=== PATIENT | female | born 1950 | race Caucasian/White ===

== ENCOUNTER → 2021-12-21 | Outpatient (CLI) | payer MEDICARE ==
--- NOTE | 2021-12-21 10:31 | MM ---
Reason for Exam: Screening (asymptomatic). Baseline mammogram. Patient History: Menarche at age 11. First Full-Term at age 19. Postmenopausal. Risk Values: Trupti 5 year model risk: 1.6%. NCI Lifetime model risk: 3.9%. Prior Study Comparison: Patient's first Mammogram. No prior studies available for comparison. Tissue Density: There are scattered fibroglandular densities. Findings: Analyzed By CAD. There is a suspicious 1.1 cm spiculated mass in the 9:00 posterior right breast for which further evaluation is recommended. On the left, there is a subtle group of microcalcifications central 12:00 position at a middle depth for which magnification views are recommended. Overall Assessment: Incomplete: need additional imaging evaluation, BI-RAD 0 Management: Special View Mammogram of the right breast. Special View Mammogram of the left breast. 1. Additional view right breast, 3-D ML view. Subsequent whole right breast ultrasound including the axilla. 2. Additional views left breast to include mag CC, mag lateral, and 3-D lateral views. Electronically signed and approved by: Yared Stover M.D. Radiologist
--- NOTE | 2021-12-21 11:40 | MM ---
Reason for Exam: Additional evaluation requested from abnormal screening. Patient History: Menarche at age 11. First Full-Term at age 19. Postmenopausal. Risk Values: Trupti 5 year model risk: 1.6%. NCI Lifetime model risk: 3.9%. Tissue Density: There are scattered fibroglandular densities. Findings: Analyzed By CAD. Mammogram Additional views right breast demonstrates the 1.1 cm spiculated high density mass posterior 9:00 position for which ultrasound is recommended. Additional views left breast show grouped punctate and slightly heterogeneous microcalcifications central 12:00 at a middle depth for which stereotactic core needle biopsy is recommended. Technique: Method: Whole Breast Handheld. Findings: The whole breast of the right breast, the axilla of the right breast and the retroareolar of the right breast were scanned. Whole right breast ultrasound is performed including scanning of the subareolar region and axilla. Within the axilla, there is a nonenlarged 1.0 cm lymph node. However, this shows generalized cortical thickening up to 4 mm. Biopsy is recommended. At the 9:00 position, 4 cm from the nipple, far posteriorly, there is a vertically oriented hypoechoic lesion measuring 9 x 9 x 8 mm with echogenic halo. This is very suspicious and biopsy is recommended. Also, at the 8:00 position, 3 cm from the nipple, there is an indeterminate hypoechoic area that could represent a prominent fat lobule versus a second lesion measuring 5 x 4 x 3 mm. This should be reassessed at the time of biopsy to determine the need for sampling at this site as well. Overall Assessment: Highly suggestive of malignancy, BI-RAD 5 Assessment: MG 3D work up w/cad SHAUNA - Bilateral: Incomplete: need additional imaging evaluation, BI-RAD 0 - Right. US breast workup RT - Right: Highly suggestive of malignancy, BI-RAD 5. Management: Ultrasound Core Biopsy of the right breast. Stereotactic Core Biopsy of the left breast. 1. Ultrasound-guided core needle biopsy posterior 9:00 highly suspicious right breast mass. Ultrasound guided core needle biopsy mildly thickened right axillary lymph node. 2. Second look ultrasound at the time of biopsy for the right breast 8:00 position to determine if this site warrants sampling as well. 3. Stereotactic core needle biopsy left breast microcalcifications. Electronically signed and approved by: Yared Stover M.D. Radiologist
--- NOTE | 2021-12-21 18:56 | BD ---
EXAMINATION TYPE: Axial Bone Density DATE OF EXAM: 12/21/2021 COMPARISON: NONE CLINICAL HISTORY: 71 years year old Female. ICD-10 CODE: N95.1 Post menopausal symptoms Height: 5 FT 3 IN Weight: 181 FRAX RISK QUESTIONS: Alcohol (3 or more units per day): NO Family History (Parent hip fracture): NO Glucocorticoids (More than 3mos): NO (Ex: prednisone, prednisolone, methylprednisolone, dexamethasone, and hydrocortisone). History of Fracture in Adulthood: NO Secondary Osteoporosis: 1. Type 1 Diabetes: NO 2. Hyperthyroidism: NO 3. Menopause before 45: YES 4. Malnutrition: NO 5. Chronic liver disease: NO Rheumatoid Arthritis: NO Current Tobacco Use: NO RISK FACTORS HISTORY OF: Surgery to Spine/Hip(right/left)/Wrist (right/left): NO Family History of Osteoporosis: YES Active: YES Diet low in dairy products/other sources of calcium: NO Postmenopausal woman: YES Take estrogen and/or progesterone medications: NO Lost more than 2 inches in height since high school: NO Frequent falls: NO Poor Health: GOOD Hyperparathyroidism: NO Adrenal Insufficiency: NO MEDICATIONS: Thyroid Medications: YES Which medication: LEVOTHYROXINE How Lon MONTHS Additional Medications: LEVOTHYROXINE, ASPIRIN, METOPROLOL TARTRATE, ATORVASTATIN, PLAVIS, NITROCLYCE RINE, VIT D2 Additional History: EXAM MEASUREMENTS: Bone mineral densitometry was performed using the virocyt System. Bone mineral density as measured about the Lumbar spine is: ----- L1-L4(G/cm2): 1.422 T Score Values are as follows: ----- L1: 1.9 ----- L2: 2.7 ----- L3: 1.3 ----- L4: 2.0 ----- L1-L4: 2.0 BASELINE Bone mineral density about the R hip (g/cm2): 0.898 Bone mineral density about the L hip (g/cm2): 1.039 T Score values are as follows: -----R Neck: -1.0 -----L Neck: 0.0 -----R Total: 0.4 -----L Total: 0.7 BASELINE FRAX%s: The graph provided illustrates a 3.2 % chance for a major osteoporotic fx and a 0.7 % chance for the hips probability for fx in 10 years time. IMPRESSION: Normal (Values between +1 and -1 indicate normal bone mass). Consider repeating this study in 5 year s or sooner if there is some new clinical indication. NOTE: T-SCORE=SD OF THE YOUNG ADULT MEAN.
== END | disposition home or self-care (01) ==
LOC: RADMAMWWP 09:38
PROVIDERS: ATTEND Internal Medicine
DX: Z12.31 Encounter for screening mammogram for malignant neoplasm of breast (principal); Z78.0 Asymptomatic menopausal state; R92.8 Other abnormal and inconclusive findings on diagnostic imaging of breast
CPT/HCPCS: 77080; 77067; 77066; 77063; 76641; G0279; 77062

== ENCOUNTER → 2022-01-21 | Outpatient (CLI) | payer MEDICARE ==
[2022-01-21 07:41] VITALS: BP 165/84; PULSE 56; RESP 18; TEMP 97.8
--- NOTE | 2022-01-21 08:01 | P.GSHP ---
History of Present Illness H&P Date: 01/21/22 Chief Complaint: Bilateral mammogram abnormal/abnormal ultrasound right breast abnormal Aalna is a 71-year-old white female seen in consultation for Dr. Mena regarding radiographic abnormalities of both breasts. On she had a bilateral mammogram performed which revealed areas of concern in both breasts. In the left breast microcalcifications for which is stereo biopsy at 12:00 was recommended was noted, and in the right breast following an ultrasound two lesions of concern potentially in the right breast as well as an abnormal lymph node were identified. In the 9 o'clock position of the right breast a spiculated mass was identified for which ultrasound-guided core biopsy was recommended and a second area of question at 8:00 was identified for second look ultrasound will be performed to determine if a biopsy of this area is also warranted. Additionally an enlarged lymph node was noted on the right side for which core biopsy was recommended. The patient herself does not feel any lumps masses or nodules of concern in either breast. This was a routine mammogram. She is not complaining of any trauma or infection in the breast. She's not had any nipple discharge or skin changes. She has never had any surgery on her breasts before. Caffeine: none nicotine: stopped 25 years ago; used to smoke a PPD for 25 years hormones: none BCP: 1 year 1968 chocolate: none at this time Family History: twin brother: lung cancer (smoker) brother: Suppressed related to a kidney transplant and developed colon cancer Hormonal History: menarche: 10 M2, breast fed: no, age at : 19 menopause: 49 hormones: none BCP: 1 year in past Surgical history: gave brother kidney for transplant 4 D&C cardiac stint baby asprirn and plavix Medical History: prior angina asthma in the past Social History: smoke: in past alcohol: none drugs: none - Constitutional Constitutional: Reports sweats - EENT Comment: macular degeneration Ears: deny: decreased hearing, tinnitus Ears, nose, mouth and throat: Denies headache, Denies sore throat - Breasts Breasts: bilateral: as per HPI - Cardiovascular Cardiovascular: Reports as per HPI - Respiratory Respiratory: Denies cough, Denies 7 - Gastrointestinal Gastrointestinal: Denies abdominal pain, Denies diarrhea, Denies nausea, Denies vomiting - Genitourinary (Female) Genitourinary: Denies dysuria, Denies hematuria - Menstruation Menstruation: Reports postmenopausal - Musculoskeletal Comment: was having pain on high cholesteral medication/ pain left wrist Musculoskeletal: Reports myalgias - Integumentary Integumentary: Denies pruritus, Denies rash - Neurological Neurological: Reports numbness, Denies weakness - Psychiatric Psychiatric: Denies anxiety, Denies depression - Endocrine Endocrine: Denies fatigue, Denies weight change - Hematologic/Lymphatic Hematologic/Lymphatic: Reports as per HPI - Allergic/Immunologic Allergic/Immunologic: Reports as per HPI Past Medical History Past Medical History: Asthma, Chest Pain / Angina, GERD/Reflux, Hyperlipidemia Additional Past Medical History / Comment(s): LBBB. No asthma in last 10 years. c/o pressure on chest, shortness of breath, numbness in jaw on/off mainly with activity. Has 1 kidney. Cardiac stent placed 08-24-21 History of Any Multi-Drug Resistant Organisms: None Reported Additional Past Surgical History / Comment(s): Kidney donation surgery cardiac stent 08-24-2021 D&Cx6 between age 38 and 48. Past Anesthesia/Blood Transfusion Reactions: No Reported Reaction, Motion Sickness Past Psychological History: No Psychological Hx Reported Smoking Status: Former smoker Past Alcohol Use History: None Reported Additional Past Alcohol Use History / Comment(s): Smoked 30 years, 1 ppd, quit 1992. Past Drug Use History: None Reported - Past Family History Brother(s) Family Medical History: Cancer Additional Family Medical History / Comment(s): lung cancer Medications and Allergies Home Medications Medication Instructions Recorded Confirmed Type Aspirin [Adult Low Dose Aspirin EC] 81 mg PO DAILY 08/20/21 01/21/22 History Calcium Carbonate [Tums] 500 - 1,000 mg PO QID PRN 08/20/21 01/21/22 History Metoprolol Tartrate [Lopressor] 25 mg PO BID 08/20/21 01/21/22 History Clopidogrel [Plavix] 75 mg PO DAILY #90 tablet 08/24/21 01/21/22 Rx Nitroglycerin Sl Tabs [Nitrostat] 0.4 mg SUBLINGUAL Q5M PRN #25 tab 08/24/21 01/21/22 Rx Ergocalciferol [Vitamin D2 (1250 1,250 mcg PO WEEKLY 12/31/21 01/21/22 History Mcg = [id number] Iu)] Levothyroxine Sodium [Synthroid] 50 mcg PO DAILY 12/31/21 01/21/22 History Rosuvastatin Calcium [Crestor] 5 mg PO DAILY 12/31/21 01/21/22 History Allergies Allergy/AdvReac Type Severity Reaction Status Date / Time Iodine and Iodide Containing Allergy Rash/Hives, Verified 01/21/22 07:41 Produc tightening of throat Tetanus Vaccines and Toxoid Allergy Anaphylaxis Verified 01/21/22 07:41 Surgical - Exam Vital Signs Temp Pulse Resp BP Pulse Ox 97.8 F 56 L 18 165/84 97 01/21/22 07:37 01/21/22 07:37 01/21/22 07:37 01/21/22 07:37 01/21/22 07:37 BMI: 32.9 - General no distress - Eyes normal ocular movement - Neck trachea midline - Respiratory normal respiratory effort, clear to auscultation - Cardiovascular Rhythm: regular Heart Sounds: normal: S1, S2 - Abdomen Abdomen: soft - Integumentary normal turger - Neurologic no disoriented, no combative - Musculoskeletal normal gait, normal posture - Psychiatric oriented to time, oriented to person, oriented to place, speech is normal, memory intact Breast Exam: BRA: 40D inspection: Bilateral grade 2/3 ptosis Palpation: Right breast: Multi-positional exam no dominant masses or nodules of concern, fibrocystic changes Right axilla: No adenopathy of concern Left breast: Multi-positional exam no dominant masses or nodules of concern, fibrocystic changes Left axilla: No adenopathy of concern Results Mammogram and ultrasound reviewed personally, mammograms reviewed with Dr. Mendoza Assessment and Plan Assessment: Impression: Microcalcifications of concern left breast Spiculated mass right breast with additional possible lesion at the 8:00 region of the right breast, enlarged lymph node right axilla Fibrocystic breast changes Plan: Attempted stereotactic core biopsy of the left breast Ultrasound-guided core biopsy of 2 lesions within the right breast, 9:00 lesion is most definitive, questionable lesion at 8:00 which will be again evaluated with ultrasound Ultrasound core biopsy of axillary lymph node on the right Risks and benefits of procedure discussed with the patient. Following biopsy the patient will return for results of the biopsies. Risks include but are not limited to bleeding, infection, reaction to the anesthetic. Additionally if the biopsies are discordant additional tissue may be required. The ability to biopsy all lesions depends on the amount of anesthesia that we can use. CC: Dr. Mena
== END ==
LOC: WWCWWP 06:55
PROVIDERS: ATTEND Surgery
DX: N60.19 Diffuse cystic mastopathy of unspecified breast (principal); R92.1 Mammographic calcification found on diagnostic imaging of breast; N63.0 Unspecified lump in unspecified breast; Z87.891 Personal history of nicotine dependence; J45.909 Unspecified asthma, uncomplicated; E78.5 Hyperlipidemia, unspecified; Z91.041 Radiographic dye allergy status; Z88.7 Allergy status to serum and vaccine

== ENCOUNTER → 2022-01-21 | Day surgery (SDC) | payer MEDICARE ==
[2022-01-21 07:26] VITALS: RESP 16
--- NOTE | 2022-01-21 08:53 | P.PCN ---
Date of Procedure: 01/21/22 Preoperative Diagnosis: Microcalcifications of concern left breast Postoperative Diagnosis: Same Procedure(s) Performed: Left breast stereotactic core biopsy Anesthesia: local Surgeon: Joie England Pathology: other (Breast tissue/microcalcifications of concern noted to be present in specimen) Condition: stable Disposition: same day Indications for Procedure: Abnormal mammogram left breast microcalcifications of concern 12 o'clock position mid breast Operative Findings: Radiographic specimen reveals microcalcifications of concern Description of Procedure: Alana is a 71-year-old white female who on a routine screening mammogram was noted to have microcalcifications of concern in her left breast at the 12 o'clock position centrally located. She was recommended to undergo a left breast stereotactic core biopsy. Additionally lesions were noted in the right breast for which she will have ultrasound core biopsy. Risks and benefits of the procedure were discussed with the patient. She understood and wished to proceed. The patient was taken to the stereotactic core biopsy room and positioned prone on the Lorad table. The lesion of concern was in the 12 o'clock position left breast in mid breast. A CC from above approach was utilized. The lesion was targeted. Following this the breast was prepped using chlorhexidine. 14 mL of 1% lidocaine were used to anesthetize the area of concern. A 9-gauge vacuum- assisted core rotating biopsy needle was driven to the correct coordinates. A prefire film was obtained and the needle was noted to be in the correct location. The needle was fired. Post fire film was obtained and the needle was noted to be in the correct location. 19 core biopsy specimens were obtained. The area was lavaged. Radiograph of the specimen revealed the area of concern had been adequately sampled. A secure marked top hat clip was placed. The clip appeared to be in the correct location. The specimen was sent to pathology. The patient will follow-up with Dr. Das in 1 week. The patient tolerated the procedure in stable condition.
[2022-01-21 08:56] VITALS: BP 140/77; PULSE 70; TEMP 98.1
--- NOTE | 2022-01-24 09:08 | MM ---
Addendum entered and electronically signed by Joie England MD 01/21/22 09:09: CC and lateral postprocedure views were evaluated and the clip appears to be in the correct location for the lesion of concern which was sampled. Original Note: Date of Procedure: 01/21/22 Preoperative Diagnosis: Microcalcifications of concern left breast Postoperative Diagnosis: Same Procedure(s) Performed: Left breast stereotactic core biopsy Anesthesia: local Surgeon: Joie England Pathology: other (Breast tissue/microcalcifications of concern noted to be present in specimen) Condition: stable Disposition: same day Indications for Procedure: Abnormal mammogram left breast microcalcifications of concern 12 o'clock position mid breast Operative Findings: Radiographic specimen reveals microcalcifications of concern Description of Procedure: Alana is a 71-year-old white female who on a routine screening mammogram was noted to have microcalcifications of concern in her left breast at the 12 o'clock position centrally located. She was recommended to undergo a left breast stereotactic core biopsy. Additionally lesions were noted in the right breast for which she will have ultrasound core biopsy. Risks and benefits of the procedure were discussed with the patient. She understood and wished to proceed. The patient was taken to the stereotactic core biopsy room and positioned prone on the Lorad table. The lesion of concern was in the 12 o'clock position left breast in mid breast. A CC from above approach was utilized. The lesion was targeted. Following this the breast was prepped using chlorhexidine. 14 mL of 1% lidocaine were used to anesthetize the area of concern. A 9-gauge vacuum- assisted core rotating biopsy needle was driven to the correct coordinates. A prefire film was obtained and the needle was noted to be in the correct location. The needle was fired. Post fire film was obtained and the needle was noted to be in the correct location. 19 core biopsy specimens were obtained. The area was lavaged. Radiograph of the specimen revealed the area of concern had been adequately sampled. A secure prashant top hat clip was placed. The clip appeared to be in the correct location. The specimen was sent to pathology. The patient will follow-up with Dr. Das in 1 week. The patient tolerated the procedure in stable condition. GR[facility] HOSPITALTarik
--- NOTE | 2022-01-27 11:28 | USB ---
Risk Values: Trupti 5 year model risk: 1.6%. NCI Lifetime model risk: 3.9%. Pathology Description: Marker Left Behind. Specimen Radiograph. Approach: CC FA Cores: 19 Skin Nicks: 1 Gauge: 9 Addendum entered and electronically signed by Joie England MD 01/21/22 09:09: CC and lateral postprocedure views were evaluated and the clip appears to be in the correct location for the lesion of concern which was sampled. Original Note: Date of Procedure: 01/21/22 Preoperative Diagnosis: Microcalcifications of concern left breast Postoperative Diagnosis: Same Procedure(s) Performed: Left breast stereotactic core biopsy Anesthesia: local Surgeon: Joie England Pathology: other (Breast tissue/microcalcifications of concern noted to be present in specimen) Condition: stable Disposition: same day Indications for Procedure: Abnormal mammogram left breast microcalcifications of concern 12 o'clock position mid breast Operative Findings: Radiographic specimen reveals microcalcifications of concern Description of Procedure: Alana is a 71-year-old white female who on a routine screening mammogram was noted to have microcalcifications of concern in her left breast at the 12 o'clock position centrally located. She was recommended to undergo a left breast stereotactic core biopsy. Additionally lesions were noted in the right breast for which she will have ultrasound core biopsy. Risks and benefits of the procedure were discussed with the patient. She understood and wished to proceed. The patient was taken to the stereotactic core biopsy room and positioned prone on the [place] table. The lesion of concern was in the 12 o'clock position left breast in mid breast. A CC from above approach was utilized. The lesion was targeted. Following this the breast was prepped using chlorhexidine. 14 mL of 1% lidocaine were used to anesthetize the area of concern. A 9-gauge vacuum-assisted core rotating biopsy needle was driven to the correct coordinates. A prefire film was obtained and the needle was noted to be in the correct location. The needle was fired. Post fire film was obtained and the needle was noted to be in the correct location. 19 core biopsy specimens were obtained. The area was lavaged. Radiograph of the specimen revealed the area of concern had been adequately sampled. A secure marked top hat clip was placed. The clip appeared to be in the correct location. The specimen was sent to pathology. The patient will follow-up with Dr. Das in 1 week. The patient tolerated the procedure in stable condition. Pathology Results: Result: Benign, Pseudoangiomatous stromal hyperplasia. LEFT BREAST, CORE BIOPSY: Fibroadenomatoid stromal hyperplasia with microcalcification, fibrocystic change with columnar cell change/hyperplasia and focal usual ductal hyperplasia. 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 Focal sclerosing adenosis present. Tissue Density: Right: There are scattered fibroglandular densities. Pathology Description: Location: 8 o'clock. Marker Left Behind. Cores: 2 Gauge: 12 This was performed after stereotactic guided core biopsy was performed by surgeon of the left breast. The procedure of ultrasound guided core biopsy was explained to the patient. Benefits, alternatives, and risks were discussed. An informed consent was then obtained. The patient was placed in supine positioning for imaging and for the procedure. Preprocedure ultrasound redemonstrates a vague heterogeneous area at 8:00 position 3 cm distance from nipple along with a more suspicious irregular hypoechoic mass 9:00 position 4 cm distance from nipple deep in the right breast along with slightly prominent right axillary lymph nodes with slightly eccentric cortical thickening. The overlying skin was prepped and draped in usual sterile fashion. Lidocaine is used as anesthetic into the skin and subcutaneous tissue at all 3 sites. Lidocaine with epinephrine is used as anesthetic in the deeper tissue in the axilla and at the 9:00 position. Approximately 15 cc total of both was used for all 3 sites. Under ultrasound guidance, a vacuum assisted biopsy gun device was used to obtain 2 core samples at 8 and 9:00 position. Following this, a biopsy clip was left in each lesion. Under ultrasound guidance, a 14-gauge Bard device was used to obtain 3 core samples and then biopsy clip was left in the targeted lymph node. The patient tolerated the procedure well without any immediate complication. The patient was kept in the radiology department for short stay after the procedure and then discharged home in stable condition. Post procedure mammogram shows successful deployment of all 3 clips. The most suspicious lesion 9:00 position corresponds to area of greatest concern on mammogram. Poor visualization of targeted right axillary lymph node due to increased irregular soft tissue density which may reflect combination of anesthetic and postbiopsy hematoma. Impression: Successful, uncomplicated ultrasound guided core biopsy of 3 areas of concern in the right breast, full pathology results to follow. High index of suspicion of the 9:00 lesion. Low index of suspicion of the 8:00 lesion. Low to intermediate index of suspicion of the right axillary lesion. Pathology Results: Result: Malignant, Invasive ductal carcinoma. A. RIGHT BREAST, 9:00 POSITION, CORE BIOPSY: Well differentiated invasive ductal carcinoma, Grade 1, with focal microcalcification (see surgical pathology cancer case summary and comment). B. RIGHT BREAST, 8:00 POSITION, CORE BIOPSY: Benign breast tissue with small duct papillomatosis, mild to moderate usual ductal hyperplasia and fibrosis. C. AXILLARY LYMPH NODE, CORE BIOPSY: Lymphoid core tissue negative for metastatic carcinoma. Pancytokeratin (AE1/AE3) stain with appropriate controls on specimen C negative for features of metastatic carcinoma. Pathology Description: Location: 9 o'clock. Marker Left Behind. Cores: 2 Gauge: 12 This was performed after stereotactic guided core biopsy was performed by surgeon of the left breast. The procedure of ultrasound guided core biopsy was explained to the patient. Benefits, alternatives, and risks were discussed. An informed consent was then obtained. The patient was placed in supine positioning for imaging and for the procedure. Preprocedure ultrasound redemonstrates a vague heterogeneous area at 8:00 position 3 cm distance from nipple along with a more suspicious irregular hypoechoic mass 9:00 position 4 cm distance from nipple deep in the right breast along with slightly prominent right axillary lymph nodes with slightly eccentric cortical thickening. The overlying skin was prepped and draped in usual sterile fashion. Lidocaine is used as anesthetic into the skin and subcutaneous tissue at all 3 sites. Lidocaine with epinephrine is used as anesthetic in the deeper tissue in the axilla and at the 9:00 position. Approximately 15 cc total of both was used for all 3 sites. Under ultrasound guidance, a vacuum assisted biopsy gun device was used to obtain 2 core samples at 8 and 9:00 position. Following this, a biopsy clip was left in each lesion. Under ultrasound guidance, a 14-gauge Bard device was used to obtain 3 core samples and then biopsy clip was left in the targeted lymph node. The patient tolerated the procedure well without any immediate complication. The patient was kept in the radiology department for short stay after the procedure and then discharged home in stable condition. Post procedure mammogram shows successful deployment of all 3 clips. The most suspicious lesion 9:00 position corresponds to area of greatest concern on mammogram. Poor visualization of targeted right axillary lymph node due to increased irregular soft tissue density which may reflect combination of anesthetic and postbiopsy hematoma. Impression: Successful, uncomplicated ultrasound guided core biopsy of 3 areas of concern in the right breast, full pathology results to follow. High index of suspicion of the 9:00 lesion. Low index of suspicion of the 8:00 lesion. Low to intermediate index of suspicion of the right axillary lesion. Pathology Results: Result: Malignant, Invasive ductal carcinoma. A. RIGHT BREAST, 9:00 POSITION, CORE BIOPSY: Well differentiated invasive ductal carcinoma, Grade 1, with focal microcalcification (see surgical pathology cancer case summary and comment). B. RIGHT BREAST, 8:00 POSITION, CORE BIOPSY: Benign breast tissue with small duct papillomatosis, mild to moderate usual ductal hyperplasia and fibrosis. C. AXILLARY LYMPH NODE, CORE BIOPSY: Lymphoid core tissue negative for metastatic carcinoma. Pancytokeratin (AE1/AE3) stain with appropriate controls on specimen C negative for features of metastatic carcinoma. Pathology Description: Location: axillary tail. Cores: 3 Gauge: 14 This was performed after stereotactic guided core biopsy was performed by surgeon of the left breast. The procedure of ultrasound guided core biopsy was explained to the patient. Benefits, alternatives, and risks were discussed. An informed consent was then obtained. The patient was placed in supine positioning for imaging and for the procedure. Preprocedure ultrasound redemonstrates a vague heterogeneous area at 8:00 position 3 cm distance from nipple along with a more suspicious irregular hypoechoic mass 9:00 position 4 cm distance from nipple deep in the right breast along with slightly prominent right axillary lymph nodes with slightly eccentric cortical thickening. The overlying skin was prepped and draped in usual sterile fashion. Lidocaine is used as anesthetic into the skin and subcutaneous tissue at all 3 sites. Lidocaine with epinephrine is used as anesthetic in the deeper tissue in the axilla and at the 9:00 position. Approximately 15 cc total of both was used for all 3 sites. Under ultrasound guidance, a vacuum assisted biopsy gun device was used to obtain 2 core samples at 8 and 9:00 position. Following this, a biopsy clip was left in each lesion. Under ultrasound guidance, a 14-gauge Bard device was used to obtain 3 core samples and then biopsy clip was left in the targeted lymph node. The patient tolerated the procedure well without any immediate complication. The patient was kept in the radiology department for short stay after the procedure and then discharged home in stable condition. Post procedure mammogram shows successful deployment of all 3 clips. The most suspicious lesion 9:00 position corresponds to area of greatest concern on mammogram. Poor visualization of targeted right axillary lymph node due to increased irregular soft tissue density which may reflect combination of anesthetic and postbiopsy hematoma. Impression: Successful, uncomplicated ultrasound guided core biopsy of 3 areas of concern in the right breast, full pathology results to follow. High index of suspicion of the 9:00 lesion. Low index of suspicion of the 8:00 lesion. Low to intermediate index of suspicion of the right axillary lesion. Pathology Results: Result: Malignant, Invasive ductal carcinoma. A. RIGHT BREAST, 9:00 POSITION, CORE BIOPSY: Well differentiated invasive ductal carcinoma, Grade 1, with focal microcalcification (see surgical pathology cancer case summary and comment). B. RIGHT BREAST, 8:00 POSITION, CORE BIOPSY: Benign breast tissue with small duct papillomatosis, mild to moderate usual ductal hyperplasia and fibrosis. C. AXILLARY LYMPH NODE, CORE BIOPSY: Lymphoid core tissue negative for metastatic carcinoma. Pancytokeratin (AE1/AE3) stain with appropriate controls on specimen C negative for features of metastatic carcinoma. Overall Assessment: Malignant Assessment: MG diagnostic mammo RT wo CAD - Right: Known biopsy proven malignancy, BI-RAD 6. Management: Surgical Consultation of the right breast. Electronically signed and approved by: Jameson Mendoza M.D.
== END ==
LOC: RADMAMWWP 06:56
PROVIDERS: ATTEND Surgery
DX: D05.11 Intraductal carcinoma in situ of right breast (principal); N62 Hypertrophy of breast; R92.0 Mammographic microcalcification found on diagnostic imaging of breast; N60.11 Diffuse cystic mastopathy of right breast; Z91.048 Other nonmedicinal substance allergy status
CPT/HCPCS: 88305; 88342; 88341; 77065; 19081; 38505; 19083; 19084; A4648 ×2; J2001

== ENCOUNTER → 2022-01-27 | Outpatient (CLI) | payer MEDICARE ==
--- NOTE | 2022-01-27 14:20 | P.PN ---
Subjective Progress Note Date: 01/27/22 Alana is a 71-year-old white female seen in consultation for Dr. Mena regarding radiographic abnormalities of both breasts. On she had a bilateral mammogram performed which revealed areas of concern in both breasts. In the left breast microcalcifications for which is stereo biopsy at 12:00 was recommended was noted, and in the right breast following an ultrasound two lesions of concern potentially in the right breast as well as an abnormal lymph node were identified. In the 9 o'clock position of the right breast a spiculated mass was identified for which ultrasound-guided core biopsy was recommended and a second area of question at 8:00 was identified for second look ultrasound will be performed to determine if a biopsy of this area is also warranted. Additionally an enlarged lymph node was noted on the right side for which core biopsy was recommended. The patient herself does not feel any lumps masses or nodules of concern in either breast. This was a routine mammogram. She is not complaining of any trauma or infection in the breast. She's not had any nipple discharge or skin changes. She has never had any surgery on her breasts before. 01-27-22 The returns to the office today with her for results of the biopsy sites. She tolerated the biopsies without difficulty. The right breast core biopsy of 3 sites was performed on Right breast 9 o'clock position well-differentiated invasive ductal carcinoma grade 1 Right breast 8 o'clock position benign breast tissue with small duct papillomatosis Axillary node biopsy lymphoid core tissue negative for metastatic carcinoma Left breast stereotactic biopsy on the same date revealed fibrocystic breast changes Caffeine: none nicotine: stopped 25 years ago; used to smoke a PPD for 25 years hormones: none BCP: 1 year 1967 chocolate: none at this time Family History: twin brother: lung cancer (smoker) brother: Suppressed related to a kidney transplant and developed colon cancer Hormonal History: menarche: 10 M2, breast fed: no, age at : 19 menopause: 49 hormones: none BCP: 1 year in past Surgical history: gave brother kidney for transplant 4 D&C cardiac stint baby asprirn and plavix Medical History: prior angina asthma in the past Social History: smoke: in past alcohol: none drugs: none - Constitutional Constitutional: Reports sweats - EENT Comment: macular degeneration Ears: deny: decreased hearing, tinnitus Ears, nose, mouth and throat: Denies headache, Denies sore throat - Breasts Breasts: bilateral: as per HPI - Cardiovascular Cardiovascular: Reports as per HPI - Respiratory Respiratory: Denies cough - Gastrointestinal Gastrointestinal: Denies abdominal pain, Denies diarrhea, Denies nausea, Denies vomiting - Genitourinary (Female) Genitourinary: Denies dysuria, Denies hematuria - Menstruation Menstruation: Reports postmenopausal - Musculoskeletal Comment: was having pain on high cholesteral medication/ pain left wrist Musculoskeletal: Reports myalgias - Integumentary Integumentary: Denies pruritus, Denies rash - Neurological Neurological: Reports numbness, Denies weakness - Psychiatric Psychiatric: Denies anxiety, Denies depression - Endocrine Endocrine: Denies fatigue, Denies weight change - Hematologic/Lymphatic Hematologic/Lymphatic: Reports as per HPI - Allergic/Immunologic Allergic/Immunologic: Reports as per HPI Objective - Constitutional General appearance: Present: cooperative - EENT Eyes: Present: EOMI ENT: Present: hearing grossly normal - Neck Neck: Present: normal ROM - Respiratory Respiratory: bilateral: CTA - Cardiovascular Rhythm: regular Heart sounds: normal: S1, S2 - Integumentary Integumentary Comment(s): Achymosis bilateral breasts of biopsy sites no evidence of hematoma or infection - Musculoskeletal Musculoskeletal: Present: gait normal - Psychiatric Psychiatric: Present: A&O x's 3, appropriate affect, intact judgment & insight Assessment and Plan Assessment: Impression: Stage IA invasive ductal carcinoma right breast Plan: present case at tumor board clearance from Dr. Mena CC: Dr. Mena
[2022-01-27 14:21] VITALS: PULSE 86; RESP 17; TEMP 98.7
== END ==
LOC: WWCWWP 13:52
PROVIDERS: ATTEND Surgery
DX: C50.911 Malignant neoplasm of unspecified site of right female breast (principal); Z17.0 Estrogen receptor positive status [ER+]; Z98.890 Other specified postprocedural states; Z87.891 Personal history of nicotine dependence; J45.909 Unspecified asthma, uncomplicated; Z91.041 Radiographic dye allergy status; Z88.7 Allergy status to serum and vaccine

== ENCOUNTER → 2022-03-18 | Outpatient (CLI) | payer MEDICARE ==
[2022-03-18 11:43] VITALS: BP 173/78; PULSE 77; RESP 16; TEMP 98.1
--- NOTE | 2022-03-18 12:05 | P.PN ---
Subjective Progress Note Date: 03/18/22 Principal diagnosis: right breast 9:00 stage IA invasive ductal cancer I have had a long discussion with the patient and her regarding the stage of her cancer, as well as treatment options. This is a T1 N0 M0 ER/MD positive HER-2 lesion which will be a stage IA no matter what the HER-2 status returns. At this point she is preferring a lumpectomy. We will also need preoperative clearance from Dr. Salamanca. Original Note: Subjective Progress Note Date: 01/27/22 Alana is a 71-year-old white female seen in consultation for Dr. [place] [id number] she had a bilateral mammogram performed which revealed areas of concern in both breasts. In the left breast microcalcifications for which is stereo biopsy at 12:00 was recommended was noted, and in the right breast following an ultrasound two lesions of concern potentially in the right breast as well as an abnormal lymph node were identified. In the 9 o'clock position of the right breast a spic ulated mass was identified for which ultrasound-guided core biopsy was recommended and a second area of question at 8:00 was identified for second look ultrasound will be performed to determine if a biopsy of this area is also warranted. Additionally an enlarged lymph node was noted on the right side for which core biopsy was recommended. The patient herself does not feel any lumps masses or nodules of concern in either breast. This was a routine mammogram. She is not complaining of any trauma or infection in the breast. She's not had any nipple discharge or skin changes. She has never had any surgery on her breasts before. 01-27-22 The returns to the office today with her for results of the biopsy sites. She tolerated the biopsies without difficulty. The right breast core biopsy of 3 [place] [id number] Right breast 9 o'clock position well-differentiated invasive ductal carcinoma grade 1 Right breast 8 o'clock position benign breast tissue with small duct papillomatosis Axillary node biopsy lymphoid core tissue negative for metastatic carcinoma Left breast stereotactic biopsy on the same date revealed fibrocystic breast changes [place] [id number] The patient is complaining of weakness in bilateral arms and hands, starting earlier this week. Caffeine: none nicotine: stopped 25 years ago; used to smoke a PPD for 25 years hormones: none BCP: 1 year 1967 chocolate: none at this time Family History: twin brother: lung cancer (smoker) brother: Suppressed related to a kidney transplant and developed colon cancer Hormonal History: menarche: 10 M2, breast fed: no, age at : 19 menopause: 49 hormones: none BCP: 1 year in past Surgical history: gave brother kidney for transplant 4 D&C cardiac stint baby asprirn and plavix Medical History: prior angina asthma in the past Social History: smoke: in past alcohol: none drugs: none - Constitutional Constitutional: Reports sweats - EENT Comment: macular degeneration Ears: deny: decreased hearing, tinnitus Ears, nose, mouth and throat: Denies headache, Denies sore throat - Breasts Breasts: bilateral: as per HPI - Cardiovascular Cardiovascular: Reports as per HPI - Respiratory Respiratory: Denies cough - Gastrointestinal Gastrointestinal: Denies abdominal pain, Denies diarrhea, Denies nausea, Denies vomiting - Genitourinary (Female) Genitourinary: Denies dysuria, Denies hematuria - Menstruation Menstruation: Reports postmenopausal - Musculoskeletal Comment: was having pain on high cholesteral medication/ pain left wrist Musculoskeletal: Reports myalgias - Integumentary Integumentary: Denies pruritus, Denies rash - Neurological Neurological: Reports numbness, Denies weakness - Psychiatric Psychiatric: Denies anxiety, Denies depression - Endocrine Endocrine: Denies fatigue, Denies weight change - Hematologic/Lymphatic Hematologic/Lymphatic: Reports as per HPI - Allergic/Immunologic Allergic/Immunologic: Reports as per HPI Objective - Constitutional General appearance: Present: cooperative - EENT Eyes: Present: EOMI ENT: Present: hearing grossly normal - Neck Neck: Present: normal ROM - Respiratory Respiratory: bilateral: CTA - Cardiovascular Rhythm: regular Heart sounds: normal: S1, S2 - Integumentary Integumentary: Present: normal turgor - Musculoskeletal Musculoskeletal: Present: gait normal - Psychiatric Psychiatric: Present: A&O x's 3, appropriate affect, intact judgment & insight - Additional findings Additional findings: Breast exam: Bra: 40D Inspection: Bilateral grade 2/3 ptosis Palpation: Bypass: Multiple positional exam no dominant masses or nodules of concern, fibrocystic changes Right axilla: No adenopathy of concern Left Breast: Multiple positional exam no dominant masses or nodules of concern, fibrocystic changes Left axilla: No adenopathy of concern Assessment and Plan Assessment: Impression: Prior angina Asthma Stage I a right breast invasive ductal carcinoma at the 9 o'clock position. Plan: right breast needle localization af 9:00 position of the right breast with lumpectomy and possible onco-plastic tissue transfer; This time the patient does not want a mastopexy incision, and she does not want sentinel node biopsy. We have discussed sentinel node biopsy and the fact that she is 72 and this is a low-grade tumor and she would prefer to be followed clinically. Risks and benefits of the procedure been discussed with the patient and her hu sband. This concluded but are not limited to bleeding, infection, reaction to the anesthetic. The margins were to be positive is possible we would have to go back and take additional breast tissue. Again at this time no sentinel lymph node biopsy is to be performed, and we are not planning on doing any mastopexy incision. I have some concerns regarding the numbness and weakness in her bilateral upper extremities that have requested evaluation from her primary care doctor prior to her surgical date. CC: Dr. Mena
== END ==
LOC: WWCWWP 11:24
PROVIDERS: ATTEND Surgery
DX: C50.511 Malignant neoplasm of lower-outer quadrant of right female breast (principal); J45.909 Unspecified asthma, uncomplicated; Z17.0 Estrogen receptor positive status [ER+]; Z91.041 Radiographic dye allergy status; Z88.7 Allergy status to serum and vaccine

== ENCOUNTER 2022-03-22 08:19 | Day surgery (SDC) | payer MEDICARE ==
[2022-03-21 13:01] VITALS: BMI 31.8
[~2022-03-22 08:19] MED LIST: ALPRAZolam 0.25 MG TAB PO PRN; DEXAMETHASONE SOD PHOSPHATE 4 MG/ML 1 ML VIAL IV ONE; HEPARIN SODIUM,PORCINE/PF 5,000 UNIT/0.5 ML SYRINGE SQ PRN; HYDROmorphone 0.5 MG/0.5 ML SYRINGE IVP PRN; LACTATED RINGERS 1,000 ML IV SCH; LIDOCAINE 1% (10MG/ML) FOR IV START INTRADERMA PRN; Pre Op ABX Message 1 EACH MISC MISCELLANE ONE
[2022-03-22] MEDS ORDERED: ONDANSETRON 4 MG/2 ML VIAL ONE (08:58)
[2022-03-22] MEDS ORDERED: LIDOCAINE 1% INJ 10MG/ML (20 ML MDV) SQ ONE (09:35)
--- NOTE | 2022-03-22 11:21 | P.NAPBC ---
NAPBC Queries - NAPBC Queries Was patient's case review presented at [facility] tumor board? If no, comment.: Yes Was patient's pathology reviewed at [facility]? If no, comment.: Yes Was breast conservation surgery offered? If no, comment.: Yes Was sentinel node biopsy offered? If no, comment.: Yes (patient declined) Was diagnosis confirmed by percutaneous core biopsy? If no, comment.: Yes Is patient mastectomy patient?: No Was a preop referral to reconstructive surgeon offered?: No Clinical Stage: stage IA right breast invasive ductql cancer
[2022-03-22] MEDS ORDERED: fentaNYL (PF) 50 MCG/ML 2 ML AMP ONE (11:51)
[2022-03-22] MEDS ORDERED: ePHEDrine 50 MG/ML 1 ML VIAL ONE (11:51)
[2022-03-22] MEDS ORDERED: HYDROmorphone (PF) 1 MG/ML ONE (11:51)
[2022-03-22] MEDS ORDERED: SUCCINYLCHOLINE CHLORIDE 200 MG/10 ML VIAL IV ONE (11:51)
[2022-03-22] MEDS ORDERED: PROPOFOL 10 MG/ML 20 ML VIAL IV ONE (11:51)
[2022-03-22] MEDS ORDERED: LIDOCAINE 2% INJ 20 MG/ML (2 ML VIAL) ONE (11:51)
[2022-03-22] MEDS ORDERED: MIDAZOLAM 2 MG/2 ML VIAL ONE (11:51)
[2022-03-22] MEDS ORDERED: SODIUM CHLORIDE 0.9% 50 ML with ceFAZolin 2,000 MG IV ONE ×2 (12:27)
--- NOTE | 2022-03-22 13:14 | P.OP ---
Date of Procedure: 03/22/22 Preoperative Diagnosis: Invasive ductal carcinoma right breast Postoperative Diagnosis: Same Procedure(s) Performed: needle localization lumpectomy, onco-plastic tissue transfer 46 cm Anesthesia: LEIDYA Surgeon: Joie England Estimated Blood Loss (ml): 10 IV fluids (ml): 600 Pathology: other (Breast tissue) Condition: stable Disposition: same day Indications for Procedure: Biopsy-proven invasive ductal carcinoma right breast Operative Findings: Fibrofatty breast tissue/tumor palpable Description of Procedure: The patient was first seen in the radiology department where needle localization of the area of cancer in the right breast was performed. The patient was then brought to the operative suite. Following induction of anesthesia the right breast was prepped and draped in a sterile fashion. An incision was made and carried down to the hook of the needle. Surrounding tissue was excised. The cavity was 6 x 4 cm. The cavity was well irrigated. Hemostasis was attained using electrocautery device as well as the Harmonic scalpel. Titanium clips were placed. Posterior dissection was onto the pectoralis muscle. Surgicel in powder form was placed. The inferior flap was developed and was 5 x 2 cm. The superior flap was developed was 4 x 3 cm. A total of 46 cm was mobilized. The specimen was painted for orientation. It was sent to radiology for confirmation that the area of concern about removed was obtained. The flaps were brought together using 3-0 Vicryl suture. Subcutaneous tissue was closed with 3-0 Vicryl suture. The skin was closed using a 4-0 subcuticular Monocryl. Steri-Strips were applied. The patient tolerated the procedure in stable condition. All instrument and sponge counts were correct at the end of the case.
--- NOTE | 2022-03-22 13:16 | P.DS ---
Providers Attending physician: Joie England Primary care physician: Jonatan Mena Plan - Discharge Summary Discharge Rx Participant: Yes New Discharge Prescriptions: No Action Metoprolol Tartrate [Lopressor] 25 mg PO BID Aspirin [Adult Low Dose Aspirin EC] 81 mg PO DAILY Calcium Carbonate [Tums] 500 - 1,000 mg PO QID PRN PRN Reason: GERD Clopidogrel [Plavix] 75 mg PO DAILY #90 tablet Ergocalciferol [Vitamin D2 (1250 Mcg = 27763 Iu)] 1,250 mcg PO WEEKLY Rosuvastatin Calcium [Crestor] 5 mg PO HS Vit C/E/Zn/Coppr/Lutein/Zeaxan [Preservision Areds 2 Softgel] 1 each PO BID Acetaminophen [Tylenol Extra Strength] 500 mg PO DIRECTED PRN PRN Reason: Pain Levothyroxine Sodium [Synthroid] 50 mcg PO DAILY Discharge Medication List Aspirin [Adult Low Dose Aspirin EC] 81 mg PO DAILY 08/20/21 [History] Calcium Carbonate [Tums] 500 - 1,000 mg PO QID PRN 08/20/21 [History] Metoprolol Tartrate [Lopressor] 25 mg PO BID 08/20/21 [History] Clopidogrel [Plavix] 75 mg PO DAILY #90 tablet 08/24/21 [Rx] Ergocalciferol [Vitamin D2 (1250 Mcg = 53435 Iu)] 1,250 mcg PO WEEKLY 12/31/21 [History] Levothyroxine Sodium [Synthroid] 50 mcg PO DAILY 12/31/21 [History] Rosuvastatin Calcium [Crestor] 5 mg PO HS 12/31/21 [History] Acetaminophen [Tylenol Extra Strength] 500 mg PO DIRECTED PRN 03/21/22 [History] Vit C/E/Zn/Coppr/Lutein/Zeaxan [Preservision Areds 2 Softgel] 1 each PO BID 03/21/22 [History] Follow up Appointment(s)/Referral(s): Joie England MD [STAFF PHYSICIAN] - 03/31/22 4:00 pm Activity/Diet/Wound Care/Special Instructions: wear bra at all times may shower after [address] for 24 hours from discharge, or if taking narcotic pain medicine Discharge Disposition: HOME SELF-CARE
[2022-03-22 13:33] VITALS: TEMP 97.1
[2022-03-22 14:49] VITALS: BP 147/87; PULSE 80; RESP 18
--- NOTE | 2022-03-25 14:44 | MM ---
Prior Study Comparison: 12/21/2021 Bilateral MG 3D work up w/cad [facility], [facility]. 12/21/2021 Bilateral MG 3D screening mammo w/cad, [facility]. 01/21/2022 Right MG diagnostic mammo RT wo CAD, [facility]. Pathology Description: Approach: Lateral to Medial Needle Type: 9 cm Kopan. The procedure of needle localization with wire placement and than surgical excision was explained to the patient. Benefits, alternatives, and risks were discussed. An informed consent was then obtained. The shortest pathway for procedure was chosen. Shortest pathway was lateral approach. The overlying skin was prepped and draped in usual sterile fashion. Lidocaine buffered with bicarbonate was used as anesthetic into the skin and subcutaneous tissue up to the level of area of concern. A 9 cm needle was used. It was placed via a lateral approach under mammographic guidance. Subsequent 90 degrees mammogram show the needle to be in satisfactory position relative to the targeted area. At this point, wire was placed and the needle was withdrawn. The wire was fixed to patient's skin. Images were marked for surgeon. The patient tolerated the procedure well without any immediate complication. The patient was kept in the radiology department for short stay after the procedure and then taken to surgery for surgical excision. Targeted nodule and clip wire are identified in specimen mammogram. The patient was kept in hospital for short stay after the procedure and then discharged home in stable condition. Impression: Successful, uncomplicated needle localization with wire placement and surgical excision of nodule and clip in the right breast, full pathology results to follow. Pathology Results: Result: Malignant, Invasive ductal carcinoma. A. 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 All margins negative for invasive carcinoma. Closest margin to invasive carcinoma: Approximately 1.5 mm from posterior margin. All margins negative for DCIS. Closest margin to DCIS: 4 mm from posterior/inferior margin junctional area. B. RIGHT BREAST, NEW POSTERIOR MARGIN, EXCISION: Benign breast tissue and benign new margin. Overall Assessment: Malignant Management: Surgical Consultation of the right breast. Therapy and follow up. Electronically signed and approved by: Joseph Guerra M.D. Radiologis
== END 2022-03-22 15:13 | disposition home or self-care (01) ==
LOC: OR 08:19
PROVIDERS: ATTEND Surgery
DX: C50.911 Malignant neoplasm of unspecified site of right female breast (principal); I10 Essential (primary) hypertension; E78.5 Hyperlipidemia, unspecified; E07.9 Disorder of thyroid, unspecified; M19.90 Unspecified osteoarthritis, unspecified site; K21.9 Gastro-esophageal reflux disease without esophagitis; I25.10 Atherosclerotic heart disease of native coronary artery without angina pectoris; Z80.1 Family history of malignant neoplasm of trachea, bronchus and lung; Z80.0 Family history of malignant neoplasm of digestive organs; Z91.041 Radiographic dye allergy status; Z88.7 Allergy status to serum and vaccine; Z79.899 Other long term (current) drug therapy
CPT/HCPCS: 14301; 88307; 76098; 19281; J2250; J0330; J1100; J2405; J0690; J2001 ×2; J3010; J1170; J2704; J1644

== ENCOUNTER → 2022-03-31 | Outpatient (CLI) | payer MEDICARE ==
--- NOTE | 2022-03-31 16:20 | P.PN ---
Progress Note - Text Progress Note Date: 03/31/22 Alana is a 72 year old white female status post a right bresat lumpectomy on 03-22-22. All her margins were (-). The lesion was 13 mm with DCIS. Invasive ductal cancer. [id number]?. She tolerated the surgery without any complications. lungs: clear heart: RRR incision: clean and dry Impression: Patient doing well postoperatively Plan: Follow-up medical oncology Follow-up radiation oncology Follow-up here in 4 months CC: DR. Mena
== END ==
LOC: WWCWWP 15:42
PROVIDERS: ATTEND Surgery
DX: Z48.817 Encounter for surgical aftercare following surgery on the skin and subcutaneous tissue (principal); D05.11 Intraductal carcinoma in situ of right breast; Z91.041 Radiographic dye allergy status; Z88.7 Allergy status to serum and vaccine

== ENCOUNTER → 2022-10-28 | Outpatient (CLI) | payer MEDICARE ==
[2022-10-28 14:40] VITALS: BP 143/75; PULSE 73; RESP 18; TEMP 98.1
--- NOTE | 2022-10-28 15:11 | P.PN ---
Subjective Progress Note Date: 10/28/22 Principal diagnosis: right breast stage IA invasive ductal cancer right breast 9:00 stage IA invasive ductal cancer Subjective Progress Note Date: 01/27/22 Alana is a 71-year-old white female seen in consultation for Dr. Mena regarding radiographic abnormalities of both breasts. On she had a bilateral mammogram performed which revealed areas of concern in both breasts. In the left breast microcalcifications for which is stereo biopsy at 12:00 was recommended was noted, and in the right breast following an ultrasound two lesions of concern potentially in the right breast as well as an abnormal lymph node were identified. In the 9 o'clock position of the right breast a spiculated mass was identified for which ultrasound-guided core biopsy was recommended and a second area of question at 8:00 was identified for second look ultrasound will be performed to determine if a biopsy of this area is also warranted. Additionally an enlarged lymph node was noted on the right side for which core biopsy was recommended. The patient herself does not feel any lumps masses or nodules of concern in either breast. This was a routine mammogram. She is not complaining of any trauma or infection in the breast. She's not had any nipple discharge or skin changes. She has never had any surgery on her breasts before. 01-27-22 The returns to the office today with her for results of the biopsy sites. She tolerated the biopsies without difficulty. 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 10-28-22 Alana is status post right breast lumpectomy on 01-21-22, 5 day radiation completed on 05-06-22 oncotype dx showed minimal benefit from chemotherapy hormone therapy AI/anastrazole started she recently developed a rash and has held this treatment the rash resolved note 09-27-22 DR. Leal reviewed Caffeine: none nicotine: stopped 25 years ago; used to smoke a PPD for 25 years hormones: none BCP: 1 year 1967 chocolate: none at this time Family History: twin brother: lung cancer (smoker) brother: Suppressed related to a kidney transplant and developed colon cancer Hormonal History: menarche: 10 M2, breast fed: no, age at : 19 menopause: 49 hormones: none BCP: 1 year in past Surgical history: gave brother kidney for transplant 4 D&C cardiac stint baby asprirn and plavix Medical History: prior angina asthma in the past Social History: smoke: in past alcohol: none drugs: none - Constitutional Constitutional: Reports sweats - EENT Comment: macular degeneration Ears: deny: decreased hearing, tinnitus Ears, nose, mouth and throat: Denies headache, Denies sore throat - Breasts Breasts: bilateral: as per HPI - Cardiovascular Cardiovascular: Reports as per HPI - Respiratory Respiratory: Denies cough - Gastrointestinal Gastrointestinal: Denies abdominal pain, Denies diarrhea, Denies nausea, Denies vomiting - Genitourinary (Female) Genitourinary: Denies dysuria, Denies hematuria - Menstruation Menstruation: Reports postmenopausal - Musculoskeletal Comment: was having pain on high cholesteral medication/ pain left wrist Musculoskeletal: Reports myalgias - Integumentary Integumentary: Denies pruritus, Denies rash - Neurological Neurological: Reports numbness, Denies weakness - Psychiatric Psychiatric: Denies anxiety, Denies depression - Endocrine Endocrine: Denies fatigue, Denies weight change - Hematologic/Lymphatic Hematologic/Lymphatic: Reports as per HPI - Allergic/Immunologic Allergic/Immunologic: Reports as per HPI Objective - Vital Signs Vital signs: Vital Signs Temp 98.1 F 10/28/22 14:37 Pulse 73 10/28/22 14:37 Resp 18 10/28/22 14:37 BP 143/75 10/28/22 14:37 Pulse Ox 97 10/28/22 14:37 FiO2 Intake & Output 10/27/22 10/28/22 10/28/22 18:59 06:59 18:59 Weight 82.554 kg - Constitutional General appearance: Present: cooperative - EENT Eyes: Present: EOMI ENT: Present: hearing grossly normal - Neck Neck: Present: normal ROM - Respiratory Respiratory: bilateral: CTA - Cardiovascular Rhythm: regular Heart sounds: normal: S1, S2 - Gastrointestinal General gastrointestinal: Present: soft - Integumentary Integumentary: Present: normal turgor - Psychiatric Psychiatric: Present: A&O x's 3, appropriate affect, intact judgment & insight - Additional findings Additional findings: Breast exam: Bra: 40D Inspection: Bilateral grade 2/3 ptosis Palpation: Bypass: Multiple positional exam no dominant masses or nodules of concern, fibrocystic changes; well-healed scar right breast from prior surgery Right axilla: No adenopathy of concern Left Breast: Multiple positional exam no dominant masses or nodules of concern, fibrocystic changes Left axilla: No adenopathy of concern Assessment and Plan Assessment: Impression: right breast stage I invasive ductal cancer no evidence of recurrence treated with lumpectomy, radiation, anestrazole rxn to anestrazole Plan: Follow-up medical oncology for a different and aromatase inhibitor Patient for bilateral mammogram December with appointment at that time CC: Dr. Mena
== END ==
LOC: WWCWWP 14:26
PROVIDERS: ATTEND Surgery
DX: N60.12 Diffuse cystic mastopathy of left breast (principal); R92.8 Other abnormal and inconclusive findings on diagnostic imaging of breast; J45.909 Unspecified asthma, uncomplicated; N63.15 Unspecified lump in the right breast, overlapping quadrants; Z79.811 Long term (current) use of aromatase inhibitors; Z80.0 Family history of malignant neoplasm of digestive organs; Z80.1 Family history of malignant neoplasm of trachea, bronchus and lung; Z87.891 Personal history of nicotine dependence; Z92.3 Personal history of irradiation; Z91.041 Radiographic dye allergy status; Z88.7 Allergy status to serum and vaccine; Z79.82 Long term (current) use of aspirin

== ENCOUNTER → 2022-12-23 | Outpatient (CLI) | payer MEDICARE ==
--- NOTE | 2022-12-23 14:52 | MM ---
Reason for Exam: Follow-up at short interval from prior study. Last screening mammogram was performed 12 month(s) ago. Patient History: Menarche at age 11. First Full-Term at age 19. Postmenopausal. Breast cancer, right, age 71. Breast cancer, right, age 71. Breast cancer, right, age 71. Breast cancer, right, age 72. Previous chest radiation therapy at age 71. 03/22/2022, Lumpectomy on the Right side. 03/22/2022, Malignant MG pre op needle loc RT on the right side. 01/21/2022, Benign MG stereo VAD BX LT on the left side. 01/21/2022, Malignant US biopsy breast VAD RT on the right side. 01/21/2022, Malignant US biopsy breast add'l VAD RT on the right side. 01/21/2022, Malignant US breast needle core RT on the right side. Prior Study Comparison: 12/21/2021 Bilateral MG 3D work up w/cad [facility], [facility]. 12/21/2021 Right US breast workup RT, [facility] 12/21/2021 Bilateral MG 3D screening mammo w/cad, [facility]. 01/21/2022 Right MG diagnostic mammo RT wo CAD, [facility]. Tissue Density: There are scattered fibroglandular densities. Findings: Analyzed By CAD. There has been interval surgery. Scar marker is utilized. No suspicious residual or recurrent changes evident. Prior core markers on the right. Prior core markers on the left. No significant interval changes on the left are evident. No suspicious groups of microcalcifications, spiculated or lobular masses, architectural distortion or other secondary signs of malignancy are mammographically apparent. Overall Assessment: Benign, BI-RAD 2 Management: Diagnostic Mammogram of both breasts in 1 year. A negative mammogram report should not preclude additional follow up of suspicious palpable abnormalities. Patient should continue monthly self breast exam. A clinical breast exam by your physician is recommended on an annual basis and results should be correlated with mammographic findings. Electronically signed and approved by: Davi Jaramillo D.O. Radiologis
== END | disposition home or self-care (01) ==
LOC: RADMAMWWP 14:06
PROVIDERS: ATTEND Surgery
DX: Z85.3 Personal history of malignant neoplasm of breast (principal); Z78.0 Asymptomatic menopausal state
CPT/HCPCS: 77066; G0279; 77062

== ENCOUNTER → 2022-12-29 | Outpatient (CLI) | payer MEDICARE ==
--- NOTE | 2022-12-29 13:23 | P.PN ---
Subjective Progress Note Date: 12/29/22 Principal diagnosis: stage I right breast cancer 202112-29-22 Alana is status post right breast lumpectomy on 01-21-22, 5 day radiation completed on 05-06-22 oncotype dx showed minimal benefit from chemotherapy hormone therapy AI/anastrazole started she recently developed a rash and has held this treatment the rash resolved note 12-22-22 DR. Leal reviewed presently on exmestane She was not complaining of any new lumps masses or nodules of concern in either breast. bilateral mammogram on 12-23-22 BIRAD 2 Caffeine: none nicotine: stopped 25 years ago; used to smoke a PPD for 25 years hormones: none BCP: 1 year 1967 chocolate: none at this time Family History: twin brother: lung cancer (smoker) brother: Suppressed related to a kidney transplant and developed colon cancer Hormonal History: menarche: 10 M2, breast fed: no, age at : 19 menopause: 49 hormones: none BCP: 1 year in past Surgical history: gave brother kidney for transplant 4 D&C cardiac stint baby asprirn and plavix Medical History: prior angina asthma in the past Social History: smoke: in past alcohol: none drugs: none - Constitutional Constitutional: Reports sweats - EENT Comment: macular degeneration Ears: deny: decreased hearing, tinnitus Ears, nose, mouth and throat: Denies headache, Denies sore throat - Breasts Breasts: bilateral: as per HPI - Cardiovascular Cardiovascular: Reports as per HPI - Respiratory Respiratory: Denies cough - Gastrointestinal Gastrointestinal: Denies abdominal pain, Denies diarrhea, Denies nausea, Denies vomiting - Genitourinary (Female) Genitourinary: Denies dysuria, Denies hematuria - Menstruation Menstruation: Reports postmenopausal - Musculoskeletal Comment: was having pain on high cholesteral medication/ pain left wrist Musculoskeletal: Reports myalgias - Integumentary Integumentary: Denies pruritus, Denies rash - Neurological Neurological: Reports numbness, Denies weakness - Psychiatric Psychiatric: Denies anxiety, Denies depression - Endocrine Endocrine: Denies fatigue, Denies weight change - Hematologic/Lymphatic Hematologic/Lymphatic: Reports as per HPI - Allergic/Immunologic Allergic/Immunologic: Reports as per HPI Objective - Constitutional General appearance: Present: cooperative - EENT Eyes: Present: EOMI ENT: Present: hearing grossly normal - Neck Neck: Present: normal ROM - Respiratory Respiratory: bilateral: CTA - Cardiovascular Rhythm: regular Heart sounds: normal: S1, S2 - Gastrointestinal General gastrointestinal: Present: soft - Integumentary Integumentary: Present: normal turgor - Musculoskeletal Musculoskeletal: Present: gait normal - Psychiatric Psychiatric: Present: A&O x's 3, appropriate affect, intact judgment & insight - Additional findings Additional findings: Breast exam: Bra: 40D Inspection: Bilateral grade 2/3 ptosis; right breast slightly smaller than left breast secondary to treatment for breast cancer Palpation: Bypass: Multiple positional exam no dominant masses or nodules of concern, fibrocystic changes; well-healed scar right breast from prior surgery Right axilla: No adenopathy of concern Left Breast: Multiple positional exam no dominant masses or nodules of concern, fibrocystic changes Left axilla: No adenopathy of concern Assessment and Plan Assessment: Impression: right breast stage I invasive ductal cancer no evidence of recurrence treated with lumpectomy, radiation, anestrazole rxn to anestrazole Plan: Follow-up medical oncology for a different and aromatase inhibitor Patient for bilateral mammogram December 2023 follow up in 6 months CC: Dr. Mena
== END ==
LOC: WWCWWP 12:48
PROVIDERS: ATTEND Surgery
DX: C50.911 Malignant neoplasm of unspecified site of right female breast (principal); Z98.86 Personal history of breast implant removal; I20.9 Angina pectoris, unspecified; J45.909 Unspecified asthma, uncomplicated; Z79.811 Long term (current) use of aromatase inhibitors; Z85.3 Personal history of malignant neoplasm of breast; Z87.891 Personal history of nicotine dependence; Z92.3 Personal history of irradiation; Z91.048 Other nonmedicinal substance allergy status; Z88.7 Allergy status to serum and vaccine; Z79.82 Long term (current) use of aspirin

== ENCOUNTER → 2023-06-22 | Outpatient (CLI) | payer MEDICARE ==
--- NOTE | 2023-06-22 12:53 | P.PN ---
Subjective Progress Note Date: 06/22/23 stage I right breast cancer 2021 Alana is status post right breast lumpectomy on 01-21-22, tumor 1.3 cm invasive ductal cancer, all margins (-)G1 ER+Pr+Her2(-), no node sampling 5 day radiation completed on 05-06-22 oncotype dx showed minimal benefit from chemotherapy hormone therapy AI/anastrazole started she recently developed a rash and has held this treatment the rash resolved note 03-23-23 DR. Leal reviewed presently on exmestane She was not complaining of any new lumps masses or nodules of concern in either breast. bilateral mammogram on 12-23-22 BIRAD 2 Caffeine: none nicotine: stopped 25 years ago; used to smoke a PPD for 25 years hormones: none BCP: 1 year 1968 chocolate: none at this time Family History: twin brother: lung cancer (smoker) brother: Suppressed related to a kidney transplant and developed colon cancer Hormonal History: menarche: 10 M2, breast fed: no, age at : 19 menopause: 49 hormones: none BCP: 1 year in past Surgical history: gave brother kidney for transplant 4 D&C cardiac stint baby asprirn and plavix Medical History: prior angina asthma in the past Social History: smoke: in past alcohol: none drugs: none - Constitutional Constitutional: Reports sweats - EENT Comment: macular degeneration Ears: deny: decreased hearing, tinnitus Ears, nose, mouth and throat: Denies headache, Denies sore throat - Breasts Breasts: bilateral: as per HPI - Cardiovascular Cardiovascular: Reports as per HPI - Respiratory Respiratory: Denies cough - Gastrointestinal Gastrointestinal: Denies abdominal pain, Denies diarrhea, Denies nausea, Denies vomiting - Genitourinary (Female) Genitourinary: Denies dysuria, Denies hematuria - Menstruation Menstruation: Reports postmenopausal - Musculoskeletal Comment: was having pain on high cholesteral medication/ pain left wrist Musculoskeletal: Reports myalgias - Integumentary Integumentary: Denies pruritus, Denies rash - Neurological Neurological: Reports numbness, Denies weakness - Psychiatric Psychiatric: Denies anxiety, Denies depression - Endocrine Endocrine: Denies fatigue, Denies weight change - Hematologic/Lymphatic Hematologic/Lymphatic: Reports as per HPI - Allergic/Immunologic Allergic/Immunologic: Reports as per HPI Objective - Constitutional General appearance: Present: cooperative - EENT Eyes: Present: EOMI ENT: Present: hearing grossly normal - Neck Neck: Present: normal ROM - Respiratory Respiratory: bilateral: CTA - Cardiovascular Rhythm: regular - Integumentary Integumentary: Present: normal turgor - Musculoskeletal Musculoskeletal: Present: gait normal - Psychiatric Psychiatric: Present: A&O x's 3, appropriate affect, intact judgment & insight - Additional findings Additional findings: Breast exam: Bra: 40D Inspection: Bilateral grade 2/3 ptosis; right breast slightly smaller than left breast secondary to treatment for breast cancer Palpation: right breast: Multiple positional exam no dominant masses or nodules of concern, fibrocystic changes; well-healed scar right breast from prior surgery Right axilla: No adenopathy of concern Left Breast: Multiple positional exam no dominant masses or nodules of concern, fibrocystic changes Left axilla: No adenopathy of concern Assessment and Plan Assessment: Impression: right breast stage I invasive ductal cancer no evidence of recurrence treated with lumpectomy, radiation, anestrazole rxn to anestrazole now on exmestane no evidence of recurrence at this time Plan: Follow-up medical oncology Patient for bilateral mammogram December 2023 follow up at that time CC: Dr. Mena
[2023-06-22 13:26] VITALS: BP 185/82; PULSE 67; RESP 17; TEMP 97.8
== END ==
LOC: WWCWWP 12:09
PROVIDERS: ATTEND Surgery
DX: C50.911 Malignant neoplasm of unspecified site of right female breast (principal); J45.909 Unspecified asthma, uncomplicated; Z87.891 Personal history of nicotine dependence; Z85.3 Personal history of malignant neoplasm of breast; Z88.7 Allergy status to serum and vaccine; Z91.041 Radiographic dye allergy status

== ENCOUNTER → 2024-01-08 | Outpatient (CLI) | payer MEDICARE ==
--- NOTE | 2024-01-08 14:19 | MM ---
Reason for Exam: Follow-up at short interval from prior study. Last mammogram was performed 1 year(s) and 1 month(s) ago. Patient History: Menarche at age 11. First Full-Term at age 19. Postmenopausal. Breast cancer, right, age 71. Breast cancer, right, age 71. Breast cancer, right, age 71. Breast cancer, right, age 72. Previous chest radiation therapy at age 71. 03/22/2022, Lumpectomy on the Right side. 03/22/2022, Malignant MG pre op needle loc RT on the right side. 01/21/2022, Benign MG stereo VAD BX LT on the left side. 01/21/2022, Malignant US biopsy breast VAD RT on the right side. 01/21/2022, Malignant US biopsy breast add'l VAD RT on the right side. 01/21/2022, Malignant US breast needle core RT on the right side. Tissue Density: There are scattered areas of fibroglandular density. Findings: Analyzed By CAD. Postsurgical and posttreatment changes right breast. A few benign vascular calcifications are noted. A microclip on either side from biopsy. Unchanged asymmetric density superior left MLO view anterior to middle depth. No significant change. Overall Assessment: Probably benign, BI-RAD 3 Management: Diagnostic Mammogram of the right breast in 6 months. In order to assess for any evolving posttreatment change, within 3 years of patient's surgery/treatment. Results were given to the patient verbally at the time of exam. Patient should continue monthly self-breast exams. A clinical breast exam by your physician is recommended on an annual basis. This exam should not preclude additional follow-up of suspicious palpable abnormalities. Electronically signed and approved by: Yared Stover M.D. Radiologist
--- NOTE | 2024-01-09 13:41 | BD ---
EXAMINATION TYPE: Axial Bone Density DATE OF EXAM: 01/08/2024 CLINICAL HISTORY: 73 years old Female. ICD-10 CODE: C50.411 BREAST CANCER HISTORY Height: 63 Weight: 177.6 FRAX RISK QUESTIONS: Alcohol (3 or more units per day): no Family History (Parent hip fracture): no Glucocorticoids (More than 3mos): no (Ex: prednisone, prednisolone, methylprednisolone, dexamethasone, and hydrocortisone). History of Fracture in Adulthood: no Secondary Osteoporosis: 1. Type 1 Diabetes: no 2. Hyperthyroidism: no 3. Menopause before 45: no 4. Malnutrition: no 5. Chronic liver disease: no Rheumatoid Arthritis: no Current Tobacco Use: no RISK FACTORS HISTORY OF: Surgery to Spine/Hip(right/left)/Wrist (right/left): no MEDICATIONS: Thyroid Medications: levothyroxine How Lon 1/2 years EXAM MEASUREMENTS: Bone mineral densitometry was performed using the [facility]. Bone mineral density as measured about the Lumbar spine is: ----- L1-L4(G/cm2): 1.445 T Score Values are as follows: ----- L1: 3.0 ----- L2: 2.8 ----- L3: 1.0 ----- L4: 2.2 ----- L1-L4: 2.2 Z Score Values are as follows: ----- L1: 4.2 ----- L2: 4.1 ----- L3: 2.2 ----- L4: 3.4 ----- L1-L4: 3.5 Bone mineral density has: increased 1.6% since study of: 12.21.2021 Bone mineral density about the R hip (g/cm2): 1.070 Bone mineral density about the L hip (g/cm2): 1.121 T Score values are as follows: -----R Neck: -0.7 -----L Neck: 0.0 -----R Total: 0.5 -----L Total: 0.9 Z Score values are as follows: -----R Neck: 0.9 -----L Neck: 1.6 -----R Total: 1.9 -----L Total: 2.3 Bone mineral density has: increased 1.9 % since study of: 6.14.2021 FRAX%s: The graph provided illustrates a 8.9% chance for a major osteoporotic fx and a 1.2% chance fo r the hips probability for fx in 10 years time. IMPRESSION: Normal (Values between +1 and -1 indicate normal bone mass). Consider repeating this study in 5 year s or sooner if there is some new clinical indication. NOTE: T-SCORE=SD OF THE YOUNG ADULT MEAN.
== END | disposition home or self-care (01) ==
LOC: RADBDWWP 13:01
PROVIDERS: ATTEND Internal Medicine Hematology & Oncology
DX: C50.411 Malignant neoplasm of upper-outer quadrant of right female breast (principal); R92.323 Mammographic fibroglandular density, bilateral breasts; Z78.0 Asymptomatic menopausal state
CPT/HCPCS: 77080; 77066; G0279; 77062

== ENCOUNTER → 2024-01-08 | Outpatient (CLI) | payer MEDICARE | END | disposition home or self-care (01) | LOC: RADMAMWWP 12:59 | PROVIDERS: ATTEND Surgery | DX: Z53.9 Procedure and treatment not carried out, unspecified reason (principal) ==

== ENCOUNTER → 2024-01-26 | Outpatient (CLI) | payer MEDICARE ==
[2024-01-26 11:05] VITALS: BP 137/69; PULSE 67; RESP 16; TEMP 98.2
--- NOTE | 2024-01-26 11:27 | P.PN ---
Subjective Progress Note Date: 01/26/24 stage I right breast cancer 2021 Alana is status post right breast lumpectomy on 01-21-22, tumor 1.3 cm invasive ductal cancer, all margins (-)G1 ER+Pr+Her2(-), no node sampling 5 day radiation completed on 05-06-22 oncotype dx showed minimal benefit from chemotherapy hormone therapy AI/anastrazole started she developed a rash and was changed to exemestane note 09-18-23 DR. Leal reviewed presently on exmestane She was not complaining of any new lumps masses or nodules of concern in either breast. bilateral mammogram on 01-08-24 BIRAD 3; repeat right breast mammogram in 6 months She is not complaining of any changes in her breast Caffeine: none nicotine: stopped 25 years ago; used to smoke a PPD for 25 years hormones: none BCP: 1 year 1967 chocolate: none at this time Family History: twin brother: lung cancer (smoker) brother: Suppressed related to a kidney transplant and developed colon cancer Hormonal History: menarche: 10 M2, breast fed: no, age at : 19 menopause: 49 hormones: none BCP: 1 year in past Surgical history: gave brother kidney for transplant 4 D&C cardiac stint baby asprirn and plavix Medical History: prior angina asthma in the past Social History: smoke: in past alcohol: none drugs: none - Constitutional Constitutional: Reports sweats - EENT Comment: macular degeneration Ears: deny: decreased hearing, tinnitus Ears, nose, mouth and throat: Denies headache, Denies sore throat - Breasts Breasts: bilateral: as per HPI - Cardiovascular Cardiovascular: Reports as per HPI - Respiratory Respiratory: Denies cough - Gastrointestinal Gastrointestinal: Denies abdominal pain, Denies diarrhea, Denies nausea, Denies vomiting - Genitourinary (Female) Genitourinary: Denies dysuria, Denies hematuria - Menstruation Menstruation: Reports postmenopausal - Musculoskeletal Comment: was having pain on high cholesteral medication/ pain left wrist Musculoskeletal: Reports myalgias - Integumentary Integumentary: Denies pruritus, Denies rash - Neurological Neurological: Reports numbness, Denies weakness - Psychiatric Psychiatric: Denies anxiety, Denies depression - Endocrine Endocrine: Denies fatigue, Denies weight change - Hematologic/Lymphatic Hematologic/Lymphatic: Reports as per HPI - Allergic/Immunologic Allergic/Immunologic: Reports as per HPI Objective - Vital Signs Vital signs: Vital Signs Temp 98.2 F 01/26/24 11:02 Pulse 67 01/26/24 11:02 Resp 16 01/26/24 11:02 BP 137/69 01/26/24 11:02 Pulse Ox 99 01/26/24 11:02 FiO2 Intake & Output 01/25/24 01/26/24 01/26/24 18:59 06:59 18:59 Weight 78.018 kg - Constitutional General appearance: Present: cooperative - EENT Eyes: Present: EOMI ENT: Present: hearing grossly normal - Neck Neck: Present: normal ROM - Respiratory Respiratory: bilateral: CTA - Cardiovascular Heart sounds: normal: S1, S2 - Integumentary Integumentary: Present: normal turgor - Musculoskeletal Musculoskeletal: Present: gait normal - Psychiatric Psychiatric: Present: A&O x's 3, appropriate affect, intact judgment & insight - Additional findings Additional findings: Breast exam: Bra: 40D Inspection: Bilateral grade 2/3 ptosis; right breast slightly smaller than left breast secondary to treatment for breast cancer Palpation: right breast: Multi-positional exam no dominant masses or nodules of concern, fibrocystic changes; well-healed scar right breast from prior surgery Right axilla: No adenopathy of concern Left Breast: Multiple positional exam no dominant masses or nodules of concern, fibrocystic changes Left axilla: No adenopathy of concern Assessment and Plan Assessment: Impression: right breast stage I invasive ductal cancer no evidence of recurrence treated with lumpectomy, radiation, exmestane rxn to anestrazole now on exmestane no evidence of recurrence at this time bilateral mammogram 01-08-24 BIRAD 3, repeat right 6 months Plan: Follow-up medical oncology right breast mammogram in 6 months (July) bilateral 1 year appointment after right mammogram CC: Dr. Mena
== END ==
LOC: WWCWWP 10:14
PROVIDERS: ATTEND Surgery
DX: R92.1 Mammographic calcification found on diagnostic imaging of breast (principal); Z48.817 Encounter for surgical aftercare following surgery on the skin and subcutaneous tissue; Z85.3 Personal history of malignant neoplasm of breast; Z87.891 Personal history of nicotine dependence; Z91.041 Radiographic dye allergy status; Z88.7 Allergy status to serum and vaccine

== ENCOUNTER → 2024-07-11 | Outpatient (CLI) | payer MEDICARE ==
--- NOTE | 2024-07-11 16:08 | USB ---
Reason for Exam: Additional evaluation requested from prior study. Patient History: Menarche at age 11. First Full-Term at age 19. Postmenopausal. Breast cancer, right, age 71. Breast cancer, right, age 71. Breast cancer, right, age 71. Breast cancer, right, age 72. Previous chest radiation therapy at age 71. 03/22/2022, Lumpectomy on the Right side. 03/22/2022, Malignant MG pre op needle loc RT on the right side. 01/21/2022, Benign MG stereo VAD BX LT on the left side. 01/21/2022, Malignant US biopsy breast VAD RT on the right side. 01/21/2022, Malignant US biopsy breast add'l VAD RT on the right side. 01/21/2022, Malignant US breast needle core RT on the right side. Technique: Method: Targeted. Prior Study Comparison: 01/21/2022 Right MG diagnostic mammo RT wo CAD, [facility]. 12/23/2022 Bilateral MG 3D diag mammo w/cad [facility], [facility]. 01/08/2024 Bilateral MG 3D diag mammo w/cad [facility], [facility]. Findings: The lateral section of the breast of the right breast, the axilla of the right breast and the retroareolar of the right breast were scanned. There is an irregular hypoechoic area measuring 3.9 x 1.5 cm at the site of the patient's scar. This is not typical for scar appearance, biopsy is recommended. Overall Assessment: Suspicious, BI-RAD 4 Management: Ultrasound Core Biopsy of the right breast. A clinical breast exam by your physician is recommended on an annual basis and results should be correlated with mammographic findings. This exam should not preclude additional follow-up of suspicious palpable abnormalities. Results were given to the patient verbally at the time of exam. [facility], , 07/11/2024 4:05 PM. Electronically signed and approved by: Davi Jaramillo D.O. Radiologis
--- NOTE | 2024-07-11 16:08 | MM ---
Reason for Exam: Follow-up at short interval from prior study. Last screening mammogram was performed 6 month(s) ago. Patient History: Menarche at age 11. First Full-Term at age 19. Postmenopausal. Breast cancer, right, age 71. Breast cancer, right, age 71. Breast cancer, right, age 71. Breast cancer, right, age 72. Previous chest radiation therapy at age 71. 03/22/2022, Lumpectomy on the Right side. 03/22/2022, Malignant MG pre op needle loc RT on the right side. 01/21/2022, Benign MG stereo VAD BX LT on the left side. 01/21/2022, Malignant US biopsy breast VAD RT on the right side. 01/21/2022, Malignant US biopsy breast add'l VAD RT on the right side. 01/21/2022, Malignant US breast needle core RT on the right side. Prior Study Comparison: 01/21/2022 Right MG diagnostic mammo RT wo CAD, [facility]. 12/23/2022 Bilateral MG 3D diag mammo w/cad [facility], [facility]. 01/08/2024 Bilateral MG 3D diag mammo w/cad [facility], [facility]. Tissue Density: Right: There are scattered areas of fibroglandular density. Findings: Analyzed By CAD. Pattern appears stable. There is a spiculated density in the outer right breast 8.3 cm from the nipple at the 9:00 position. Compression view was obtained with some compression. Ultrasound is recommended for additional evaluation. No suspicious groups of microcalcifications, spiculated or lobular masses, architectural distortion or other secondary signs of malignancy are mammographically apparent. Overall Assessment: Incomplete: need additional imaging evaluation, BI-RAD 0 Management: Diagnostic Breast Ultrasound of the right breast. A negative mammogram report should not preclude additional follow up of suspicious palpable abnormalities. Patient should continue monthly self breast exam. A clinical breast exam by your physician is recommended on an annual basis and results should be correlated with mammographic findings. Note on Trupti scores and lifetime risk: 1. A Trupti score greater than 3% is considered moderate risk. If this is the case, consider specialist referral to assess eligibility for a risk reducing agent. 2. If overall lifetime risk for the development of breast cancer is 20% or higher, the patient may qualify for future screening with alternating mammogram and breast MRI. [facility], , 07/11/2024 4:05 PM. Electronically signed and approved by: Davi Jaramillo D.O. Radiologis
== END | disposition home or self-care (01) ==
LOC: RADMAMWWP 10:35
PROVIDERS: ATTEND Internal Medicine Hematology & Oncology
DX: R92.8 Other abnormal and inconclusive findings on diagnostic imaging of breast (principal); C50.411 Malignant neoplasm of upper-outer quadrant of right female breast; I10 Essential (primary) hypertension; E78.5 Hyperlipidemia, unspecified; Z17.0 Estrogen receptor positive status [ER+]; Z78.0 Asymptomatic menopausal state; Z85.3 Personal history of malignant neoplasm of breast
CPT/HCPCS: 77065; 76642; G0279; 77061

== ENCOUNTER → 2024-07-24 | Day surgery (SDC) | payer MEDICARE ==
--- NOTE | 2024-07-26 12:30 | MM ---
Reason for Exam: Post Procedure Mammogram. Last screening mammogram was performed 6 month(s) ago. Patient History: Menarche at age 11. First Full-Term at age 19. Postmenopausal. Breast cancer, right, age 71. Breast cancer, right, age 71. Breast cancer, right, age 71. Breast cancer, right, age 72. Previous chest radiation therapy at age 71. 03/22/2022, Lumpectomy on the Right side. 03/22/2022, Malignant MG pre op needle loc RT on the right side. 01/21/2022, Benign MG stereo VAD BX LT on the left side. 01/21/2022, Malignant US biopsy breast VAD RT on the right side. 01/21/2022, Malignant US biopsy breast add'l VAD RT on the right side. 01/21/2022, Malignant US breast needle core RT on the right side. Prior Study Comparison: 12/23/2022 Bilateral MG 3D diag mammo w/cad [facility], [facility]. 01/08/2024 Bilateral MG 3D diag mammo w/cad SHAU[facility], [facility]. 07/11/2024 Right US breast limited RT, [facility]. 07/11/2024 Right MG 3D diag mammo w/cad RT, [facility]. Tissue Density: Right: There are scattered areas of fibroglandular density. Pathology Description: Location: 9 o'clock. Marker Left Behind. Needle Type: Celero Cores: 4 Gauge: 12 The procedure of ultrasound guided core biopsy was explained to the patient. Benefits, alternatives, and risks were discussed. An informed consent was then obtained. The patient was placed in supine positioning for imaging and for the procedure. Preprocedure ultrasound redemonstrates a thick-walled elongated fluid collection at site of scar 9:00 position 8 cm distance from nipple without significant vascularity having some irregular margins measuring near 3.5 cm long axis. The overlying skin was prepped and draped in usual sterile fashion. Lidocaine buffered with bicarbonate was used as anesthetic into the skin and subcutaneous tissue up to area of concern in the right breast. Under ultrasound guidance, a vacuum assisted biopsy gun device was used to obtain 3 core samples. Following this, a biopsy clip was left in lesion. The patient tolerated the procedure well without any immediate complication. The patient was kept in the radiology department for short stay after the procedure and then discharged home in stable condition. Postprocedure mammogram: The patient was transferred to mammography for physician ordered post procedure mammogram for clip placement verification. Post procedure mammogram is unable to demonstrate appropriate placement of clip due to marked lateral location. I was not asked to review postprocedure mammogram prior to patient discharge to assess for additional views making suboptimal. Residual targeted area is present under ultrasound. Impression: Successful ultrasound guided core biopsy of area of concern in the right breast, full pathology results to follow. Low index of suspicion noted at time of procedure. [facility], Workstation: [employer], 07/24/2024 11:54 AM. Pathology Results: Result: Benign. Pathology and radiology were reviewed. Findings are concordant. RIGHT BREAST, NINE O'CLOCK, ULTRASOUND GUIDED NEEDLE CORE BIOPSY: Fibrosis/scar with pigmented histiocytes and mild chronic inflammation. Negative for malignancy. Overall Assessment: Benign Assessment: MG diagnostic mammo RT wo CAD - Right: Benign, BI-RAD 2. Management: Diagnostic Breast Ultrasound of the right breast in 6 months. Electronically signed and approved by: Jameson Mendoza M.D.
== END | disposition home or self-care (01) ==
LOC: RADUSWWP 07:46
PROVIDERS: ATTEND Surgery
DX: R92.8 Other abnormal and inconclusive findings on diagnostic imaging of breast (principal); Z92.3 Personal history of irradiation; Z85.3 Personal history of malignant neoplasm of breast
CPT/HCPCS: 88305; 77065; 19083; A4648

== ENCOUNTER → 2024-08-09 | Outpatient (CLI) | payer MEDICARE ==
[2024-08-09 13:39] VITALS: BP 118/67; PULSE 72; RESP 18; TEMP 97.8
--- NOTE | 2024-08-09 13:57 | P.PN ---
Subjective Progress Note Date: 08/09/24 Principal diagnosis: stage 1 right breast cancer, 202108-09-24 stage I right breast cancer 2021 Alana is status post right breast lumpectomy on 01-21-22, tumor 1.3 cm invasive ductal cancer, all margins (-)G1 ER+Pr+Her2(-), no node sampling 5 day radiation completed on 05-06-22 oncotype dx showed minimal benefit from chemotherapy hormone therapy AI/anastrazole started she developed a rash and was changed to exemestane note 01-22-24 DR. Leal reviewed presently on exmestane She was not complaining of any new lumps masses or nodules of concern in either breast. bilateral mammogram on 01-08-24 BIRAD 3; repeat right breast mammogram in 6 months; repeat right breast mammogram and ultrasound on 07-11-24 which led to a right breast ultrasound core biopsy on 07-23-24 benign concordant She is not complaining of any changes in her breast Caffeine: none nicotine: stopped 25 years ago; used to smoke a PPD for 25 years hormones: none BCP: 1 year 1968 chocolate: none at this time Family History: twin brother: lung cancer (smoker) brother: Suppressed related to a kidney transplant and developed colon cancer Hormonal History: menarche: 10 M2, breast fed: no, age at : 19 menopause: 49 hormones: none BCP: 1 year in past Surgical history: gave brother kidney for transplant 4 D&C cardiac stint baby aspirin and plavix Medical History: prior angina asthma in the past Social History: smoke: in past alcohol: none drugs: none - Constitutional Constitutional: Reports sweats - EENT Comment: macular degeneration Ears: deny: decreased hearing, tinnitus Ears, nose, mouth and throat: Denies headache, Denies sore throat - Breasts Breasts: bilateral: as per HPI - Cardiovascular Cardiovascular: Reports as per HPI - Respiratory Respiratory: Denies cough - Gastrointestinal Gastrointestinal: Denies abdominal pain, Denies diarrhea, Denies nausea, Denies vomiting - Genitourinary (Female) Genitourinary: Denies dysuria, Denies hematuria - Menstruation Menstruation: Reports postmenopausal - Musculoskeletal Comment: was having pain on high cholesteral medication/ pain left wrist Musculoskeletal: Reports myalgias - Integumentary Integumentary: Denies pruritus, Denies rash - Neurological Neurological: Reports numbness, Denies weakness - Psychiatric Psychiatric: Denies anxiety, Denies depression - Endocrine Endocrine: Denies fatigue, Denies weight change - Hematologic/Lymphatic Hematologic/Lymphatic: Reports as per HPI - Allergic/Immunologic Allergic/Immunologic: Reports as per HPI Objective - Vital Signs Vital signs: Vital Signs Temp 97.8 F 08/09/24 13:37 Pulse 72 08/09/24 13:37 Resp 18 08/09/24 13:37 BP 118/67 08/09/24 13:37 Pulse Ox 97 08/09/24 13:37 FiO2 Intake & Output 08/08/24 08/09/24 08/09/24 18:59 06:59 18:59 Weight 77.111 kg - Constitutional General appearance: Present: cooperative - EENT Eyes: Present: EOMI - Neck Neck: Present: normal ROM - Respiratory Respiratory: bilateral: CTA - Cardiovascular Heart sounds: normal: S1, S2 - Integumentary Integumentary: Present: normal turgor - Musculoskeletal Musculoskeletal: Present: gait normal - Psychiatric Psychiatric: Present: A&O x's 3, appropriate affect, intact judgment & insight - Additional findings Additional findings: Breast exam: Bra: 40D Inspection: Bilateral grade 2/3 ptosis; right breast slightly smaller than left breast secondary to treatment for breast cancer Palpation: right breast: Multi-positional exam no dominant masses or nodules of concern, fibrocystic changes; well-healed scar right breast from prior surgery, biopsy site clean and dry Right axilla: No adenopathy of concern Left Breast: Multiple positional exam no dominant masses or nodules of concern, fibrocystic changes Left axilla: No adenopathy of concern Assessment and Plan Assessment: Impression: right breast stage I invasive ductal cancer no evidence of recurrence treated with lumpectomy, radiation, exmestane rxn to anestrazole now on exmestane no evidence of recurrence at this time bilateral mammogram 01-08-24 BIRAD 3, repeat right 6 months; right breast mammogram and ultrasound on 07-11-24 led to a core biopsy of the right breast on 07-23-24 benign concordant Plan: Follow-up medical oncology bilateral mammogram in 6 months appointment after mammogram CC: Dr. Mena
== END ==
LOC: WWCWWP 12:45
PROVIDERS: ATTEND Surgery
DX: R92.8 Other abnormal and inconclusive findings on diagnostic imaging of breast (principal); C50.911 Malignant neoplasm of unspecified site of right female breast; Z90.11 Acquired absence of right breast and nipple; Z91.041 Radiographic dye allergy status; Z88.7 Allergy status to serum and vaccine

== ENCOUNTER → 2025-01-22 | Outpatient (CLI) | payer MEDICARE ==
--- NOTE | 2025-01-23 09:19 | MM ---
Reason for Exam: Hx of breast cancer, conservation therapy. Last screening mammogram was performed 12 month(s) ago. Patient History: Menarche at age 11. First Full-Term at age 19. Postmenopausal. Breast cancer, right, age 71. Breast cancer, right, age 71. Breast cancer, right, age 71. Breast cancer, right, age 72. Previous chest radiation therapy at age 71. 07/24/2024, Benign US biopsy breast VAD RT on the right side. 03/22/2022, Lumpectomy on the Right side. 03/22/2022, Malignant MG pre op needle loc RT on the right side. 01/21/2022, Benign MG stereo VAD BX LT on the left side. 01/21/2022, Malignant US biopsy breast VAD RT on the right side. 01/21/2022, Malignant US biopsy breast add'l VAD RT on the right side. 01/21/2022, Malignant US breast needle core RT on the right side. Prior Study Comparison: 12/21/2021 Bilateral MG 3D work up w/cad SHAUNA, [facility]. 12/21/2021 Right US breast workup RT, [facility]. 12/21/2021 Bilateral MG 3D screening mammo w/cad, [facility]. 01/21/2022 Right MG diagnostic mammo RT wo CAD, [facility]. 12/23/2022 Bilateral MG 3D diag mammo w/cad SHAUNA, [facility]. 01/08/2024 Bilateral MG 3D diag mammo w/cad SHAUNA, [facility]. 07/11/2024 Right US breast limited RT, [facility]. 07/11/2024 Right MG 3D diag mammo w/cad RT, [facility]. 07/24/2024 Right MG diagnostic mammo RT wo CAD, [facility]. Tissue Density: There are scattered areas of fibroglandular density. Findings: Analyzed By CAD. Postoperative changes of right-sided lumpectomy. Post biopsy changes left breast. No recurrent or residual mass. No suspicious microcalcifications. Overall Assessment: Incomplete: need additional imaging evaluation, BI-RAD 0 Management: Diagnostic Breast Ultrasound of the left breast. Results were given to the patient verbally at the time of exam. Patient should continue monthly self-breast exams. A clinical breast exam by your physician is recommended on an annual basis. This exam should not preclude additional follow-up of suspicious palpable abnormalities. Note on Trupti scores and lifetime risk: 1. A Trupti score greater than 3% is considered moderate risk. If this is the case, consider specialist referral to assess eligibility for a risk reducing agent. 2. If overall lifetime risk for the development of breast cancer is 20% or higher, the patient may qualify for future screening with alternating mammogram and breast MRI. [facility], , 01/22/2025 2:42 PM. Electronically signed and approved by: Joseph Guerra M.D. Radiologis
--- NOTE | 2025-01-23 10:58 | USB ---
Reason for Exam: Follow-up at short interval from prior study. Patient History: Menarche at age 11. First Full-Term at age 19. Postmenopausal. Breast cancer, right, age 71. Breast cancer, right, age 71. Breast cancer, right, age 71. Breast cancer, right, age 72. Previous chest radiation therapy at age 71. 07/24/2024, Benign US biopsy breast VAD RT on the right side. 03/22/2022, Lumpectomy on the Right side. 03/22/2022, Malignant MG pre op needle loc RT on the right side. 01/21/2022, Benign MG stereo VAD BX LT on the left side. 01/21/2022, Malignant US biopsy breast VAD RT on the right side. 01/21/2022, Malignant US biopsy breast add'l VAD RT on the right side. 01/21/2022, Malignant US breast needle core RT on the right side. Technique: Method: Targeted. Prior Study Comparison: 01/08/2024 Bilateral MG 3D diag mammo w/cad SHAUNA, [facility]. 07/11/2024 Right US breast limited RT, [facility]. 07/11/2024 Right MG 3D diag mammo w/cad RT, [facility]. 07/24/2024 Right MG diagnostic mammo RT wo CAD, [facility]. Findings: The axilla of the right breast and the retroareolar of the right breast were scanned. A limited US of right 9:00 position, axilla and retro-areolar region were reviewed. Previously dilated area with surgical clip and mixed echogenicity is stable in appearance. Possibly related to postoperative seroma. Overall Assessment: Probably benign, BI-RAD 3 Management: Diagnostic Breast Ultrasound of the right breast in 6 months. A clinical breast exam by your physician is recommended on an annual basis and results should be correlated with mammographic findings. This exam should not preclude additional follow-up of suspicious palpable abnormalities. Results were given to the patient verbally at the time of exam. [facility], , 01/23/2025 10:23 AM. Electronically signed and approved by: Nathen Price M.D. Radiolog[facility]
== END | disposition home or self-care (01) ==
LOC: RADMAMWWP 14:15
PROVIDERS: ATTEND Surgery
DX: R92.8 Other abnormal and inconclusive findings on diagnostic imaging of breast (principal); R92.323 Mammographic fibroglandular density, bilateral breasts; Z98.890 Other specified postprocedural states; Z78.0 Asymptomatic menopausal state; Z85.3 Personal history of malignant neoplasm of breast
CPT/HCPCS: 77062; 77066

== ENCOUNTER → 2025-01-23 | Outpatient (CLI) | payer MEDICARE ==
[2025-01-23 10:16] VITALS: BP 132/71; PULSE 72; RESP 16; TEMP 97.9
--- NOTE | 2025-01-23 10:45 | P.PN ---
Subjective Progress Note Date: 01/23/25 Principal diagnosis: stage I right breast cancer 202101-23-25 Principal diagnosis: stage I right breast cancer [id number] Alana is status post right breast lumpectomy on 01-21-22, tumor 1.3 cm invasive ductal cancer, all margins (-)G1 ER+Pr+Her2(-), no node sampling 5 day radiation completed on 05-06-22 oncotype dx showed minimal benefit from chemotherapy hormone therapy AI/anastrazole started she developed a rash and was changed to exemestane note 01-22-24 DR. Leal reviewed presently on exmestane She was not complaining of any new lumps masses or nodules of concern in either breast. bilateral mammogram on 01-08-24 BIRAD 3; repeat right breast mammogram in 6 months; repeat right breast mammogram and ultrasound on 07-11-24 which led to a right breast ultrasound core biopsy on 07-23-24 benign concordant She is not complaining of any changes in her breast 01-23-25 Alana is status post right breast lumpectomy on 01-21-22, tumor 1.3 cm invasive ductal cancer, all margins (-)G1 ER+Pr+Her2(-), no node sampling 5 day radiation completed on 05-06-22 oncotype dx showed minimal benefit from chemotherapy hormone therapy AI/anastrazole started she developed a rash and was changed to exemestane At this time she is not complaining of any lumps masses or nodules of concern in either breast. note medical oncology Dr. Leal reviewed 08-08-24, tolerating exmestane Bilateral mammogram 01-22-2025 BI-RADS 0, left breast ultrasound performed on the same date and personally reviewed and discussed with DR. Cross. BIRAD 3 probable seroma right breast, repeat right breast ultrasound in 6 months. (No left breast ultrasound was performed, after review of the radiographs it is felt that this was a dictation error and it was meant the right breast) Caffeine: none nicotine: stopped 25 years ago; used to smoke a PPD for 25 years hormones: none BCP: 1 year 1967 chocolate: none at this time Family History: twin brother: lung cancer (smoker) brother: Suppressed related to a kidney transplant and developed colon cancer Hormonal History: menarche: 10 M2, breast fed: no, age at : 19 menopause: 49 hormones: none BCP: 1 year in past Surgical history: gave brother kidney for transplant 4 D&C cardiac stint baby aspirin and plavix Medical History: prior angina asthma in the past Social History: smoke: in past alcohol: none drugs: none - Constitutional Constitutional: Reports sweats - EENT Comment: macular degeneration Ears: deny: decreased hearing, tinnitus Ears, nose, mouth and throat: Denies headache, Denies sore throat - Breasts Breasts: bilateral: as per HPI - Cardiovascular Cardiovascular: Reports as per HPI - Respiratory Respiratory: Denies cough - Gastrointestinal Gastrointestinal: Denies abdominal pain, Denies diarrhea, Denies nausea, Denies vomiting - Genitourinary (Female) Genitourinary: Denies dysuria, Denies hematuria - Menstruation Menstruation: Reports postmenopausal - Musculoskeletal Comment: was having pain on high cholesteral medication/ pain left wrist Musculoskeletal: Reports myalgias - Integumentary Integumentary: Denies pruritus, Denies rash - Neurological Neurological: Reports numbness, Denies weakness - Psychiatric Psychiatric: Denies anxiety, Denies depression - Endocrine Endocrine: Denies fatigue, Denies weight change - Hematologic/Lymphatic Hematologic/Lymphatic: Reports as per HPI - Allergic/Immunologic Allergic/Immunologic: Reports as per HPI Objective - Vital Signs Vital signs: Vital Signs Temp 97.9 F 01/23/25 10:13 Pulse 72 01/23/25 10:13 Resp 16 01/23/25 10:13 BP 132/71 01/23/25 10:13 Pulse Ox 98 01/23/25 10:13 FiO2 Intake & Output 01/22/25 01/23/25 01/23/25 18:59 06:59 18:59 Weight 78.018 kg - Constitutional General appearance: Present: cooperative - EENT Eyes: Present: EOMI ENT: Present: hearing grossly normal - Neck Neck: Present: normal ROM - Respiratory Respiratory: bilateral: CTA - Cardiovascular Rhythm: regular Heart sounds: normal: S1, S2 - Integumentary Integumentary: Present: normal turgor - Musculoskeletal Musculoskeletal: Present: gait normal - Psychiatric Psychiatric: Present: A&O x's 3, appropriate affect, intact judgment & insight - Additional findings Additional findings: Breast exam: Bra: 40D Inspection: Bilateral grade 2/3 ptosis; right breast slightly smaller than left breast secondary to treatment for breast cancer Palpation: right breast: Multi-positional exam no dominant masses or nodules of concern, fibrocystic changes; well-healed scar right breast from prior surgery, biopsy site clean and dry Right axilla: No adenopathy of concern Left Breast: Multiple positional exam no dominant masses or nodules of concern, fibrocystic changes Left axilla: No adenopathy of concern Assessment and Plan Assessment: Impression: right breast stage I invasive ductal cancer no evidence of recurrence treated with lumpectomy, radiation, exmestane rxn to anestrazole now on exmestane no evidence of recurrence at this time bilateral mammogram 01-22-25 BIRAD 0, right breast ultrasound BI-RADS 3 repeat right breast ultrasound in 6 months; right breast mammogram and ultrasound on 07-11-24 led to a core biopsy of the right breast on 07-23-24 benign concordant Plan: Follow-up medical oncology Follow-up radiation oncology As a repeat right breast ultrasound in 6 months with examination at that time Will review mammography report from 01-22-2025 to confirm that no lesions of concern are noted in the left breast Bilateral mammogram in 1 year CC: Dr. Mena
== END ==
LOC: WWCWWP 09:52
PROVIDERS: ATTEND Surgery
DX: C50.911 Malignant neoplasm of unspecified site of right female breast (principal); Z98.890 Other specified postprocedural states; Z88.7 Allergy status to serum and vaccine; Z91.041 Radiographic dye allergy status